=== PATIENT | female | born 1980 | race American Indian/Alaskan Native ===

== ENCOUNTER 2017-08-13 08:05 | Day surgery (SDC) | payer BC, OTHER ==
[~2017-08-13 08:05] MED LIST: Bupivacaine 0.5% 30 ML SDV ONE; Clindamycin Phosphate in D5W 300 MG in Premix Bag 1 BAG IV SCH; Lactated Ringers 1,000 ML IV SCH; Lidocaine 2% 5 ML SDV ONE; Midazolam 1 MG/ML 2 ML SDV ONE; Propofol 200 MG/20 ML SDV ONE; Sodium Chloride 0.9% 10 ML Syringe FLUSH PRN; Sodium Chloride 0.9% 2.5 ML Syringe FLUSH PRN; fentaNYL 100 MCG/2 ML SDV ONE
--- NOTE | 2017-08-13 08:44 | PCM.PREANE ---
Preanesthetic Assessment - Anesthesia/Transfusion/Family Hx Anesthesia History: Prior Anesthesia Without Reaction Family History of Anesthesia Reaction: No Family History of Anesthesia Reaction, Other: Father had prolonged hypotension during and after total knee Transfusion History: No Prior Transfusion(s) Intubation History: Unknown Additional History: Required transport to other facility a few years ago fro treatment of renal failure due to severe kidney infection - Review of Systems General: No Symptoms, Other (Reports recent hesd cold with mild cough and sniffles) Pulmonary: No Symptoms, Cough, Other (Mild cough related to recent cold) Cardiovascular: No Symptoms Gastrointestinal: Other (Chronic heartburn GERD Reflux) Neurological: Other (Anxiety took an atavan this morning) Other: Reports: Liver Problems, Depression, Anxiety - Physical Assessment NPO Status Date: 08/12/17 (Med with sip this am) NPO Status Time: 18:00 Height: 1.68 m Weight: 92.533 kg ASA Class: 2 Airway Class: Mallampati = 2 Dentition: Reports: Normal Dentition, [place](s) Thyro-Mental Finger Breadths: 3 Mouth Opening Finger Breadths: 2 ROM/Head Extension: Full (front veneers crowns elsewhere) - Lab Values: pending potassium - Allergies Allergies/Adverse Reactions: Allergies Allergy/AdvReac Type Severity Reaction Status Date / Time Penicillins Allergy Rash Verified 08/10/17 10:08 - Acknowledgements Anesthesia Type Planned: General Anesthesia Pt an Appropriate Candidate for the Planned Anesthesia: Yes Alternatives and Risks of Anesthesia Discussed w Pt/Guardian: Yes Pt/Guardian Understands and Agrees with Anesthesia Plan: Yes PreAnesthesia Questionnaire HEENT History: Reports: Other (See Below) Other HEENT History: wears glasses Cardiovascular History: Reports: Hypertension Gastrointestinal History: Reports: GERD, Other (See Below) Other Gastrointestinal History: "fatty liver" Genitourinary History: Reports: Other (See Below) Other Genitourinary History: "had strep in my kidneys and went in to acute renal failure in 2012 and was flown to [place]" Neurological History: Reports: Other (See Below) Other Neuro History: restless legs Psychiatric History: Reports: Anxiety, Depression Endocrine/Metabolic History: Reports: Obesity/BMI 30+ - Past Surgical History Head Surgeries/Procedures: Reports: None GI Surgical History: Reports: Cholecystectomy Female Surgical History: Reports: Tubal Ligation - SUBSTANCE USE Smoking Status *Q: Current Every Day Smoker Tobacco Use Within Last Twelve Months: Cigarettes Recreational Drug Use History: No - HOME MEDS Home Medications: Home Meds Atenolol 25 mg PO BEDTIME 08/10/17 [History] LORazepam 1 tab PO ASDIRECTED PRN 08/10/17 [History] Metoclopramide HCl 10 mg PO DAILY 08/10/17 [History] Omeprazole 40 mg PO DAILY 08/10/17 [History] Pramipexole Di-HCl [Pramipexole Dihydrochloride] 2 tab PO BEDTIME 08/10/17 [ History] Sertraline HCl 100 mg PO BEDTIME 08/10/17 [History] amLODIPine [Norvasc] 5 mg PO BEDTIME 08/10/17 [History] - CURRENT (IN HOUSE) MEDS Current Meds: Current Medications Clindamycin Phosphate 300 mg/ (Premix) 50 mls @ 100 mls/hr IV ONETIME LILIA Lactated Ringer's (Ringers, Lactated) 1,000 mls @ 125 mls/hr IV ASDIRECTED LILIA Sodium Chloride (Saline Flush) 10 ml FLUSH ASDIRECTED PRN PRN Reason: Keep Vein Open Sodium Chloride (Saline Flush) 2.5 ml FLUSH ASDIRECTED PRN PRN Reason: Keep Vein Open Discontinued Medications Bupivacaine HCl (Marcaine 0.5%) Confirm Administered Dose 30 ml .ROUTE .STK-MED ONE Stop: 08/13/17 07:21 Fentanyl (Sublimaze) Confirm Administered Dose 100 mcg .ROUTE .STK-MED ONE Stop: 08/13/17 07:24 Fentanyl (Sublimaze) Confirm Administered Dose 100 mcg .ROUTE .STK-MED ONE Stop: 08/13/17 07:25 Lidocaine (Xylocaine-Mpf 2%) Confirm Administered Dose 10 ml .ROUTE .STK-MED ONE Stop: 08/13/17 07:23 Midazolam HCl (Versed 1 Mg/Ml) Confirm Administered Dose 2 mg .ROUTE .STK-MED ONE Stop: 08/13/17 07:24 Propofol (Diprivan 20 Ml) Confirm Administered Dose 400 mg .ROUTE .STK-MED ONE Stop: 08/13/17 07:24
[2017-08-13 09:12] LABS: CHLORIDE,CL 107 mmol/L (98-110); SODIUM,NA 138 mmol/L (136-146)
[2017-08-13] MEDS ORDERED: Lidocaine 2% 5 ML SDV ONE (09:22)
[2017-08-13] MEDS ORDERED: Succinylcholine/Normal Saline 200 MG/10 ML Syringe ONE (10:13)
[2017-08-13] MEDS ORDERED: ePHEDrine 50 MG/ML SDV ONE (10:18)
[2017-08-13] MEDS ORDERED: fentaNYL 100 MCG/2 ML SDV IVPUSH PRN (11:00)
--- NOTE | 2017-08-13 11:27 | PCM.POSTAN ---
POST ANESTHESIA ASSESSMENT - MENTAL STATUS Mental Status: Alert, Oriented - VITAL SIGNS Pulse Rate: 79 SaO2: 91 (91 on room air to phase 2 with supplemental nasal o2) Resp Rate: 11 Blood Pressure: 95/48 - RESPIRATORY Respiratory Status: Respiratory Rate WNL, Airway Patent, O2 Saturation Stable, Supplemental Oxygen Free Text/Narrative:: Had atavan prior to coming for surgery this AM drifts off to sleep unless conversing also spontaneous awake then back to sleep. Will supplement with nasal o2 bringing Sao2 to 94 for phase 2. - CARDIOVASCULAR CV Status: Pulse Rate WNL, Blood Pressure Stable - GASTROINTESTINAL GI Status: No Symptoms - PAIN Pain Score: 0 - POST OP HYDRATION Hydration Status: Adequate & Stable
--- NOTE | 2017-08-13 12:29 | PCM48HPAN ---
Post Anesthesia Note - EVALUATION WITHIN 48HRS OF ANESTHETIC Vital Signs in Normal Range: Yes Patient Participated in Evaluation: Yes Respiratory Function Stable: Yes Airway Patent: Yes Cardiovascular Function Stable: Yes Hydration Status Stable: Yes Pain Control Satisfactory: Yes Nausea and Vomiting Control Satisfactory: Yes Mental Status Recovered: Yes
--- NOTE | 2017-08-14 12:46 | OR ---
SURGEON: JERI BYRD MD DATE OF PROCEDURE: 08/13/2017 PREOPERATIVE DIAGNOSES: 1. Heartburn. 2. Hidradenitis of the left breast. POSTOPERATIVE DIAGNOSES: 1. Heartburn. 2. Hidradenitis of the left breast. PROCEDURES PERFORMED: 1. Excision of left breast fold hidradenitis. 2. Esophagogastroduodenoscopy with biopsy. ANESTHESIA: General endotracheal anesthesia. ESTIMATED BLOOD LOSS: 5 mL. FLUIDS: See anesthesia record. FINDINGS: Normal EGD, 4 cm area of chronically inflamed hidradenitis suppurativa. COMPLICATIONS: None. INDICATION: The patient is a 36-year-old female who presented to my office with complaints of refractory heartburn. She has been on omeprazole for a long period of time with no relief in her symptoms. She never had an EGD. On physical exam, I discovered that she had an area of chronically inflamed tissue suggestive of hidradenitis suppurativa under her left breast fold. She has been on multiple rounds of antibiotics with no improvement. I explained to the patient the pathophysiology of hidradenitis and that the treatment for that is excision. We decided to perform an excision of this area as well as a diagnostic EGD. I explained the procedures in detail and the expected perioperative course. I have discussed the risks including bleeding, infection, or damage to surrounding structures including perforation with the EGD. The patient verbalized understanding and wishes to proceed. PROCEDURE IN DETAIL: The patient was brought into the OR and placed on the OR table in supine position. A time-out was completed verifying the patient's name, age, date of , allergies, and procedures to be performed. General endotracheal anesthetic was induced. The left chest and breasts were prepped and draped in the usual standard fashion. An elliptical incision was made along the inferior breast folds approximately 4 x 2 cm in size. This completely encompassed the area of chronically inflamed tissue, leaving healthy wound edges. The area was anesthetized with 0.5% Marcaine plain. Cautery was used to dissect down to the subcutaneous fat. The elliptical skin incision was then undermined using the cautery. The piece of tissue was then removed and sent to pathology labeled as left breast hidradenitis. Hemostasis was achieved using electrocautery. The wound was then closed with interrupted 3-0 Vicryl sutures on the subcutaneous fat and a running 4-0 Monocryl stitch in the subcuticular space. Steri-Strips and sterile dressings were applied. Attention was then turned to the patient's oropharynx. A bite block was placed in the patient's mouth. A well-lubricated endoscope was then placed into the back of the throat and navigated under direct visualization to the level of the second portion of the duodenum. This appeared normal, and a photograph was taken. The scope was then fully withdrawn while examining the color, texture, anatomy, and integrity of the upper GI tract. The patient had what appeared to be some scattered small hyperplastic polyps measuring about 1 to 2 mm in the duodenal bulb. A biopsy was taken of this polyp in the duodenum. The scope was then brought into the stomach and a photograph taken of the pylorus and GE junction. This appeared normal, and a photograph was taken. Biopsies were then taken in the gastric antrum, body, and fundus and sent for H pylori and histologic testing. Overall, there did not appear to be any gross inflammation or ulceration. The scope was withdrawn to the distal esophagus and a photograph was taken of the GE junction which appeared normal. The remainder of the esophageal mucosa was without any pathology. The scope was removed from the patient and the procedure was terminated. The patient tolerated the procedure well and was taken to the PACU in stable condition. ENDOSCOPIC DIAGNOSIS: Normal esophagogastroduodenoscopy. RECOMMENDATIONS: Follow up in clinic in 2 weeks. I gave the patient detailed instructions on how to care for her left breast wound. I will switch the patient's pantoprazole today to see if this improves her heartburn symptoms. 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 SHAHEED CHOPRA /[id number]
== END 2017-08-13 12:30 | disposition home or self-care (01) ==
LOC: MW.SDS 08:05
PROVIDERS: ATTEND Surgery
DX: K21.9 Gastro-esophageal reflux disease without esophagitis (principal); L73.2 Hidradenitis suppurativa; F41.9 Anxiety disorder, unspecified; M54.9 Dorsalgia, unspecified; F32.9 Major depressive disorder, single episode, unspecified; R79.89 Other specified abnormal findings of blood chemistry; R31.9 Hematuria, unspecified; I10 Essential (primary) hypertension; K29.50 Unspecified chronic gastritis without bleeding; E87.6 Hypokalemia; G47.00 Insomnia, unspecified; G25.81 Restless legs syndrome; E66.9 Obesity, unspecified; F17.210 Nicotine dependence, cigarettes, uncomplicated; Z88.0 Allergy status to penicillin; Z79.899 Other long term (current) drug therapy; Z90.49 Acquired absence of other specified parts of digestive tract; Z98.51 Tubal ligation status; Z68.32 Body mass index [BMI] 32.0-32.9, adult
CPT/HCPCS: 11450; 36415; 43239; 80048; 81025; J2250; J3010; J7120; 00740; 88305; 88312; J2704

== ENCOUNTER 2018-01-20 06:43 | Day surgery (SDC) | payer BC, OTHER ==
[2018-01-19 12:04] LABS: CHLORIDE,CL 104 mmol/L (98-107); SODIUM,NA 140 mmol/L (136-145)
[~2018-01-20 06:43] MED LIST changes: -Bupivacaine 0.5% 30 ML SDV ONE; -Clindamycin Phosphate in D5W 300 MG in Premix Bag 1 BAG IV SCH; -Lactated Ringers 1,000 ML IV SCH; -Lidocaine 2% 5 ML SDV ONE; -Midazolam 1 MG/ML 2 ML SDV ONE; -Propofol 200 MG/20 ML SDV ONE; +ceFAZolin 1 GM in Premix Bag 1 BAG IV ONE; -fentaNYL 100 MCG/2 ML SDV ONE
[2018-01-20] MEDS: Lactated Ringers 1,000 ML IV SCH ×2 (07:02→11:49)
[2018-01-20] MEDS ORDERED: fentaNYL 100 MCG/2 ML SDV IVPUSH PRN (07:11)
[2018-01-20] MEDS ORDERED: Scopolamine 1.5 MG Transdermal Patch TRDERM PRN (07:11)
[2018-01-20] MEDS ORDERED: Acetaminophen 1,000 MG in Premix Bag 1 BAG IV SCH (07:15)
--- NOTE | 2018-01-20 07:20 | PCM.PREANE ---
Preanesthetic Assessment - Anesthesia/Transfusion/Family Hx Anesthesia History: Prior Anesthesia Without Reaction Other Type of Anesthesia Reaction Comment: "oxygen saturation drops during recovery" Family History of Anesthesia Reaction: No Family History of Anesthesia Reaction, Other: Father had prolonged hypotension during and after total knee Transfusion History: No Prior Transfusion(s) Intubation History: Unknown - Review of Systems General: No Symptoms Pulmonary: No Symptoms Cardiovascular: No Symptoms Gastrointestinal: No Symptoms Neurological: No Symptoms Other: Reports: None - Physical Assessment NPO Status Date: 01/19/18 O2 Sat by Pulse Oximetry: 95 Respiratory Rate: 16 Vital Signs: Last Vital Signs Temp 36.5 C 01/20/18 06:58 Pulse 62 01/20/18 06:58 Resp 16 01/20/18 06:58 BP 132/87 01/20/18 06:58 Pulse Ox 95 01/20/18 06:58 Height: 1.68 m Weight: 94.801 kg ASA Class: 2 Mental Status: Alert & Oriented x3 Airway Class: Mallampati = 1 Dentition: Reports: Normal Dentition, [place](s) (central maxillary crowns) ROM/Head Extension: Full Lungs: Clear to Auscultation, Normal Respiratory Effort Cardiovascular: Regular Rate, Regular Rhythm - Lab Values: Laboratory Last Values WBC 6.40 K/uL (4.0-11.0) 01/19/18 11:12 RBC 4.43 M/uL (4.30-5.90) 01/19/18 11:12 Hgb 13.9 g/dL (12.0-16.0) 01/19/18 11:12 Hct 40.2 % (36.0-46.0) 01/19/18 11:12 MCV 90.7 fL (80.0-98.0) 01/19/18 11:12 MCH 31.4 pg (27.0-32.0) 01/19/18 11:12 MCHC 34.6 g/dL (31.0-37.0) 01/19/18 11:12 RDW Std Deviation 46.9 fl (28.0-62.0) 01/19/18 11:12 RDW Coeff of Corey 14 % (11.0-15.0) 01/19/18 11:12 Plt Count 218 K/uL (150-400) 01/19/18 11:12 MPV 9.00 fL (7.40-12.00) 01/19/18 11:12 Nucleated RBC % 0.0 /100WBC 01/19/18 11:12 Nucleated RBCs # 0 K/uL 01/19/18 11:12 Sodium 140 mmol/L (136-145) 01/19/18 11:12 Potassium 3.1 mmol/L (3.5-5.1) L 01/19/18 11:12 Chloride 104 mmol/L (98-107) 01/19/18 11:12 Carbon Dioxide 25.0 mmol/L (21.0-32.0) 01/19/18 11:12 BUN 11 mg/dL (7.0-18.0) 01/19/18 11:12 Creatinine 0.8 mg/dL (0.6-1.0) 01/19/18 11:12 Est Cr Clr Drug Dosing 90.13 mL/min 01/19/18 11:12 Estimated GFR (MDRD) > 60.0 ml/min 01/19/18 11:12 Glucose 101 mg/dL (74-106) 01/19/18 11:12 Calcium 8.7 mg/dL (8.5-10.1) 01/19/18 11:12 HCG, Qual NEGATIVE (NEG) 01/19/18 11:12 Blood Type A POSITIVE 01/19/18 11:12 Antibody Screen NEGATIVE 01/19/18 11:12 - Allergies Allergies/Adverse Reactions: Allergies Allergy/AdvReac Type Severity Reaction Status Date / Time morphine Allergy Itching Verified 01/20/18 07:03 Penicillins Allergy Rash Verified 01/20/18 07:03 - Anesthesia Plan Pre-Op Medication Ordered: Other (iv tylenol plus scop patch) - Acknowledgements Anesthesia Type Planned: General Anesthesia Pt an Appropriate Candidate for the Planned Anesthesia: Yes Alternatives and Risks of Anesthesia Discussed w Pt/Guardian: Yes Pt/Guardian Understands and Agrees with Anesthesia Plan: Yes Additional Comments: PMH: gerd. 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: Neurological History: Reports: Other (See Below) Other Neuro History: restless legs Psychiatric History: Reports: Anxiety, Depression Other Psychiatric History: loss of son 1 yr ago Endocrine/Metabolic History: Reports: Obesity/BMI 30+ - Past Surgical History Head Surgeries/Procedures: Reports: None GI Surgical History: Reports: Cholecystectomy Female Surgical History: Reports: Tubal Ligation Dermatological Surgical History: Reports: Other (See Below) - SUBSTANCE USE Smoking Status *Q: Current Every Day Smoker Tobacco Use Within Last Twelve Months: Cigarettes Recreational Drug Use History: No - HOME MEDS Home Medications: Home Meds Atenolol 25 mg PO BEDTIME 08/10/17 [History] Pramipexole Di-HCl [Pramipexole Dihydrochloride] 2 tab PO BEDTIME PRN 08/10/17 [ History] Sertraline HCl 100 mg PO BEDTIME 08/10/17 [History] amLODIPine [Norvasc] 5 mg PO BEDTIME 08/10/17 [History] Pantoprazole [ProTONIX] 40 mg PO ACBREAKFAST #30 tab.cr 08/13/17 [Rx] - CURRENT (IN HOUSE) MEDS Current Meds: Current Medications Fentanyl (Sublimaze) 50 mcg IVPUSH .Q5MIN PRN PRN Reason: Pain Lactated Ringer's (Ringers, Lactated) 1,000 mls @ 125 mls/hr IV ASDIRECTED LILIA Last Admin: 01/20/18 07:02 Dose: 125 mls/hr Acetaminophen 1,000 mg/ Premix 100 mls @ 400 mls/hr IV .ONETIME LILIA Scopolamine (Transderm-Scop) 1.5 mg TRDERM .ONCE PRN PRN Reason: Post Op Nausea Sodium Chloride (Saline Flush) 10 ml FLUSH ASDIRECTED PRN PRN Reason: Keep Vein Open Sodium Chloride (Saline Flush) 2.5 ml FLUSH ASDIRECTED PRN PRN Reason: Keep Vein Open Discontinued Medications Cefazolin Sodium/Dextrose 1 gm (/ Premix) 50 mls @ 100 mls/hr IV ONETIME ONE Stop: 01/19/18 10:31
[2018-01-20] MEDS ORDERED: fentaNYL 250 MCG/5 ML SDV ONE (07:24)
[2018-01-20] MEDS ORDERED: Rocuronium 10 MG/ML 10 ML Syringe ONE (07:24)
[2018-01-20] MEDS ORDERED: Propofol 200 MG/20 ML SDV ONE ×2 (07:24→09:51)
[2018-01-20] MEDS ORDERED: Ondansetron 4 MG/2 ML SDV ONE (07:24)
[2018-01-20] MEDS ORDERED: Midazolam 1 MG/ML 2 ML SDV ONE (07:24)
[2018-01-20] MEDS ORDERED: Lidocaine 2% 5 ML SDV ONE (07:24)
[2018-01-20] MEDS ORDERED: ceFAZolin/Dextrose,Iso-Osmotic 2 GM/50 ML Duplex Bag IV ONE (07:26)
[2018-01-20] MEDS ORDERED: Octyl 2-Cyanoacrylate 1 Tube ONE (07:39)
[2018-01-20] MEDS ORDERED: Fluorescein 5 ML Vial ONE (07:40)
[2018-01-20] MEDS ORDERED: HYDROmorphone 2 MG/ML SDV ONE (08:12)
[2018-01-20] MEDS ORDERED: Dexamethasone 4 MG/ML 5 ML MDV ONE (08:19)
[2018-01-20] MEDS ORDERED: diphenhydrAMINE 50 MG/ML SDV ONE (08:19)
[2018-01-20] MEDS ORDERED: Ketorolac 30 MG/ML SDV ONE (09:04)
[2018-01-20] MEDS ORDERED: Furosemide 40 MG/4 ML VIAL ONE (09:11)
[2018-01-20] MEDS ORDERED: Acetaminophen/oxyCODONE 325-5 MG Tab PO PRN (09:17)
[2018-01-20] MEDS ORDERED: Promethazine 25 MG/ML SDV IM PRN (09:17)
[2018-01-20] MEDS ORDERED: Ondansetron 4 MG/2 ML SDV IVPUSH PRN (09:17)
[2018-01-20] MEDS ORDERED: Ketorolac 30 MG/ML SDV IVPUSH ONE (09:17)
[2018-01-20] MEDS ORDERED: Morphine 4 MG/ML Syringe IVPUSH PRN (09:17)
[2018-01-20] MEDS ORDERED: Ketorolac 30 MG/ML SDV IVPUSH PRN (09:17)
[2018-01-20] MEDS ORDERED: Glycopyrrolate 0.2 MG/ML SDV ONE (09:18)
[2018-01-20] MEDS ORDERED: Neostigmine Methylsulfate 1 MG/ML 5 ML Syringe ONE (09:18)
--- NOTE | 2018-01-20 09:22 | PCM.OPNOTE ---
- General Post-Op/Procedure Note Date of Surgery/Procedure: 01/20/18 Operative Procedure(s): TLH, Bilat. salpengectomy, and cystoscopy Pre Op Diagnosis: bleeding Post-Op Diagnosis: Same Anesthesia Technique: General ET Tube Primary Surgeon: Kevin Charles Chief Crna: Hedy Buchanan EBL in mLs: 75 Complications: None Condition: Good
--- NOTE | 2018-01-20 10:45 | PCM.POSTAN ---
POST ANESTHESIA ASSESSMENT - MENTAL STATUS Mental Status: Alert, Oriented - RESPIRATORY Respiratory Status: Respiratory Rate WNL, Airway Patent, O2 Saturation Stable - CARDIOVASCULAR CV Status: Pulse Rate WNL, Blood Pressure Stable - GASTROINTESTINAL GI Status: No Symptoms - POST OP HYDRATION Hydration Status: Adequate & Stable (prolongued direct attendance in PACU untill 1043. Sats now 94% on mask O2, RR 11-13. Will write for nasal O2 on floor and continuous pulseoximetry. Comfortable. no need for additional analgesics in pacu. )
--- NOTE | 2018-01-20 11:14 | PCM.SN ---
- Free Text/Narrative Note: fully awake and alert. Spo2= 94% on NC. pain free. To floor.
--- NOTE | 2018-01-20 12:37 | OR ---
SURGEON: Kevin Charles MD DATE OF PROCEDURE: 01/20/2018 PREOPERATIVE DIAGNOSIS: Menometrorrhagia. POSTOPERATIVE DIAGNOSIS: Menometrorrhagia. OPERATIONS PERFORMED: Total laparoscopic hysterectomy, laparoscopic bilateral salpingectomy preserving both ovaries, and cystoscopy. LEAD ARCHITECT: MARCELLE Carney ANESTHESIA: General endotracheal intubation, Magali Love and Dr. Wilson. ESTIMATED BLOOD LOSS: 75 mL. COMPLICATIONS: None. FINDINGS: Uterus about 10-week size. Both ovaries are essentially normal. INDICATION FOR SURGERY: [place] referred to the admit note. PROCEDURE IN DETAIL: The patient was brought to the OR, properly identified and after adequate level of anesthesia, patient placed in the lithotomy position with access to the abdomen and the vagina. Burks catheter was placed in the bladder. Then John Paul surgical colpotomizer manipulator placed in the uterus for manipulation and then the operation shifted abdominally. Stab wound done beneath the umbilicus. The Veress needle was placed in the peritoneal cavity, and that cavity was insufflated with 3.5 L carbon dioxide. The abdomen entered with 5 mm trocar and scope, utilizing the Visiport technique. Once we got entry, the 10-12 trocar placed in the left iliac fossa and 5 mm trocar in the right iliac fossa. After placing the patient in steep Trendelenburg, inspection of the pelvic organs revealed the above-mentioned dictated finding. The procedure was ended by using the Gabino Harmonic scalpel. The superior pedicle coagulated and transected. The tubes including with the specimen and ovary on both sides replaced. Then, the round ligament is coagulated, transected and then the anterior leaf of the broad ligament dissected downward medially, pushing the bladder completely away from the operative field. Then, the uterine vessel was coagulated and transected at the level of the internal ring of the manipulator. Once that done, using the Gabino Harmonic scalpel, a circular incision in the vaginal mucosa around the tip of the manipulator, detaching the cervix from its attachment to the vagina, uterus delivered vaginally, and pneumoperitoneum re-established by placing vaginal pack in the vagina, and the vagina was closed laparoscopically with 2-0 PDS interrupted sutures. Once we did that and while we were doing that, we asked the Anesthesia people to give the patient 3 mL of fluorescein. After deflating the abdomen and after making sure there was no bleeding, no oozing from all the pedicles, the Burks catheter was removed. Cystoscopy was performed. The bladder was intact. Both ureteric orifices were seen with the dye coming from both of them. Thus, the patency of both ureters verified. Satisfied with these findings, the procedure ended. The instrument and hardware retrieved from the abdomen and the vagina. Multiple laparoscopic incisions closed in layers. The instrument and sponge count correct. The patient tolerated the procedure well, went to recovery room in stable general condition. HJOANA / NAV /[id number]
[2018-01-20] MEDS: Acetaminophen/oxyCODONE 325-5 MG Tab PO PRN ×2 (16:54→20:56)
[2018-01-21] MEDS: Acetaminophen/oxyCODONE 325-5 MG Tab PO PRN ×2 (02:22→08:41)
[2018-01-21 06:32] LABS: CHLORIDE,CL 105 mmol/L (98-107); SODIUM,NA 140 mmol/L (136-145)
--- NOTE | 2018-01-21 08:53 | PCM48HPAN ---
Post Anesthesia Note - EVALUATION WITHIN 48HRS OF ANESTHETIC Vital Signs in Normal Range: Yes Patient Participated in Evaluation: Yes Respiratory Function Stable: Yes Airway Patent: Yes Cardiovascular Function Stable: Yes Hydration Status Stable: Yes Pain Control Satisfactory: Yes Nausea and Vomiting Control Satisfactory: Yes Mental Status Recovered: Yes Resp Rate: 18
--- NOTE | 2018-01-21 10:29 | PCM.SURGPN ---
- General Info Date of Service: 01/21/18 POD#: 1 Functional Status: Reports: Pain Controlled - Review of Systems General: Reports: No Symptoms HEENT: Reports: No Symptoms Pulmonary: Reports: No Symptoms Cardiovascular: Reports: No Symptoms Gastrointestinal: Reports: No Symptoms Genitourinary: Reports: No Symptoms Musculoskeletal: Reports: No Symptoms Skin: Reports: No Symptoms Neurological: Reports: No Symptoms Psychiatric: Reports: No Symptoms - Patient Data Vitals - Most Recent: Last Vital Signs Temp 36.7 C 01/21/18 08:00 Pulse 66 01/21/18 08:00 Resp 18 01/21/18 08:52 BP 113/64 01/21/18 08:00 Pulse Ox 91 L 01/21/18 09:17 Weight - Most Recent: 94.801 kg I&O - Last 24 Hours: Intake & Output 01/20/18 01/21/18 01/21/18 22:59 06:59 14:59 Intake Total 2060 1500 Output Total 300 1450 Balance 1760 50 Lab Results Last 24 Hrs: Laboratory Results - last 24 hr 01/21/18 01/21/18 Range/Units 04:57 04:57 WBC 10.77 (4.0-11.0) K/uL RBC 3.97 L (4.30-5.90) M/uL Hgb 12.1 (12.0-16.0) g/dL Hct 36.7 (36.0-46.0) % MCV 92.4 (80.0-98.0) fL MCH 30.5 (27.0-32.0) pg MCHC 33.0 (31.0-37.0) g/dL RDW Std Deviation 47.4 (28.0-62.0) fl RDW Coeff of Corey 14 (11.0-15.0) % Plt Count 190 (150-400) K/uL MPV 9.80 (7.40-12.00) fL Neut % (Auto) 72.0 (48.0-80.0) % Lymph % (Auto) 19.3 (16.0-40.0) % [place] % (Auto) 8.0 (0.0-15.0) % Eos % (Auto) 0.5 (0.0-7.0) % Baso % (Auto) 0.2 (0.0-1.5) % Neut # (Auto) 7.8 H (1.4-5.7) K/uL Lymph # (Auto) 2.1 (0.6-2.4) K/uL [place] # (Auto) 0.9 H (0.0-0.8) K/uL Eos # (Auto) 0.1 (0.0-0.7) K/uL Baso # (Auto) 0.0 (0.0-0.1) K/uL Nucleated RBC % 0.0 /100WBC Nucleated RBCs # 0 K/uL Sodium 140 (136-145) mmol/L Potassium 3.1 L (3.5-5.1) mmol/L Chloride 105 (98-107) mmol/L Carbon Dioxide 26.9 (21.0-32.0) mmol/L BUN 11 (7.0-18.0) mg/dL Creatinine 0.8 (0.6-1.0) mg/dL Est Cr Clr Drug Dosing 90.13 mL/min Estimated GFR (MDRD) > 60.0 ml/min Glucose 135 H (74-106) mg/dL Calcium 8.2 L (8.5-10.1) mg/dL Med Orders - Current: Current Medications Fentanyl (Sublimaze) 50 mcg IVPUSH .Q5MIN PRN PRN Reason: Pain Lactated Ringer's (Ringers, Lactated) 1,000 mls @ 125 mls/hr IV ASDIRECTED [facility] Last Infusion: 01/20/18 20:50 Dose: Infused Acetaminophen 1,000 mg/ Premix 100 mls @ 400 mls/hr IV .ONETIME [facility] Last Admin: 01/20/18 07:24 Dose: 400 mls/hr Ketorolac Tromethamine (Toradol) 30 mg IVPUSH Q6H PRN PRN Reason: Pain (severe 7-10) Stop: 01/25/18 09:17 Morphine Sulfate (Morphine) 4 mg IVPUSH Q2H PRN PRN Reason: Pain (severe 7-10) Ondansetron HCl (Zofran) 4 mg IVPUSH Q6H PRN PRN Reason: Nausea/Vomiting Oxycodone/Acetaminophen (Percocet 325-5 Mg) 1 tab PO Q4H PRN PRN Reason: Pain (moderate 4-6) Oxycodone/Acetaminophen (Percocet 325-5 Mg) 2 tab PO Q4H PRN PRN Reason: Pain (moderate 4-6) Last Admin: 01/21/18 08:41 Dose: 2 tab Promethazine HCl (Phenergan) 25 mg IM Q6H PRN PRN Reason: Nausea/Vomiting Scopolamine (Transderm-Scop) 1.5 mg TRDERM .ONCE PRN PRN Reason: Post Op Nausea Last Admin: 01/20/18 07:24 Dose: 1.5 mg Sodium Chloride (Saline Flush) 10 ml FLUSH ASDIRECTED PRN PRN Reason: Keep Vein Open Sodium Chloride (Saline Flush) 2.5 ml FLUSH ASDIRECTED PRN PRN Reason: Keep Vein Open Discontinued Medications Cefazolin Sodium/Dextrose (Ancef) Confirm Administered Dose 2 gm IV .STK-MED ONE Stop: 01/20/18 07:27 Dexamethasone (Dexamethasone) Confirm Administered Dose 20 mg .ROUTE .STK-MED ONE Stop: 01/20/18 08:20 Diphenhydramine HCl (Benadryl) Confirm Administered Dose 50 mg .ROUTE .STK-MED ONE Stop: 01/20/18 08:20 Fentanyl (Sublimaze) Confirm Administered Dose 250 mcg .ROUTE .STK-MED ONE Stop: 01/20/18 07:25 Fluorescein Sodium (Ak-Fluor) Confirm Administered Dose 5 ml .ROUTE .STK-MED ONE Stop: 01/20/18 07:41 Furosemide (Lasix) Confirm Administered Dose 40 mg .ROUTE .STK-MED ONE Stop: 01/20/18 09:12 Glycopyrrolate (Robinul) Confirm Administered Dose 0.4 mg .ROUTE .STK-MED ONE Stop: 01/20/18 09:19 Hydromorphone HCl (Dilaudid) Confirm Administered Dose 2 mg .ROUTE .STK-MED ONE Stop: 01/20/18 08:13 Cefazolin Sodium/Dextrose 1 gm (/ Premix) 50 mls @ 100 mls/hr IV ONETIME ONE Stop: 01/19/18 10:31 Last Admin: 01/20/18 11:54 Dose: Not Given Ketorolac Tromethamine (Toradol) Confirm Administered Dose 30 mg .ROUTE .STK- MED ONE Stop: 06/07/18 09:05 Ketorolac Tromethamine (Toradol) 30 mg IVPUSH ONETIME ONE Stop: 01/20/18 09:18 Last Admin: 01/20/18 12:00 Dose: Not Given Lidocaine (Xylocaine-Mpf 2%) Confirm Administered Dose 5 ml .ROUTE .STK-MED ONE Stop: 01/20/18 07:25 Midazolam HCl (Versed 1 Mg/Ml) Confirm Administered Dose 2 mg .ROUTE .STK-MED ONE Stop: 01/20/18 07:25 Neostigmine Methylsulfate (Neostigmine) Confirm Administered Dose 5 mg .ROUTE .STK-MED ONE Stop: 01/20/18 09:19 Octyl Cyanoacrylate (Dermabond Advance) Confirm Administered Dose 1 applic .ROUTE .STK-MED ONE Stop: 01/20/18 07:40 Ondansetron HCl (Zofran) Confirm Administered Dose 4 mg .ROUTE .STK-MED ONE Stop: 01/20/18 07:25 Propofol (Diprivan 20 Ml) Confirm Administered Dose 200 mg .ROUTE .STK-MED ONE Stop: 01/20/18 07:25 Propofol (Diprivan 20 Ml) Confirm Administered Dose 200 mg .ROUTE .STK-MED ONE Stop: 01/20/18 09:52 Rocuronium [place] (Zemuron) Confirm Administered Dose 100 mg .ROUTE .STK-MED ONE Stop: 01/20/18 07:25 - Exam Wound/Incisions: Healing Well General: Alert, Oriented HEENT: Pupils Equal Neck: Supple Lungs: Clear to Auscultation, Normal Respiratory Effort Cardiovascular: Regular Rate, Regular Rhythm GI/Abdominal Exam: Normal Bowel Sounds, Soft, Non-Tender, No Organomegaly, No Distention, No Abnormal Bruit, No Mass, Pelvis Stable Extremities: Normal Inspection, Normal Range of Motion, Non-Tender, No Pedal Edema, Normal Capillary Refill Skin: Warm, Dry, Intact Neurological: No New Focal Deficit Psy/Mental Status: Alert, Normal Affect, Normal Mood - Problem List Review Problem List Initiated/Reviewed/Updated: Yes - My Orders Last 24 Hours: Active Orders 24 hr Category Date Time Status Overnight Pulse Oximetry [RC] Click to Edit Care 01/20/18 10:40 Inactive Regular Diet [DIET] Diet 01/20/18 Lunch Active Medication Orders Fentanyl (Sublimaze) 50 mcg IVPUSH .Q5MIN PRN PRN Reason: Pain Lactated Ringer's (Ringers, Lactated) 1,000 mls @ 125 mls/hr IV ASDIRECTED [facility] Last Infusion: 01/20/18 20:50 Dose: 125 mls/hr Admin: 01/20/18 11:49 Dose: 125 mls/hr Infusion: 01/20/18 11:49 Dose: 125 mls/hr Admin: 01/20/18 07:02 Dose: 125 mls/hr Acetaminophen 1,000 mg/ Premix 100 mls @ 400 mls/hr IV .ONETIME [facility] Last Admin: 01/20/18 07:24 Dose: 400 mls/hr Ketorolac Tromethamine (Toradol) 30 mg IVPUSH Q6H PRN PRN Reason: Pain (severe 7-10) Stop: 01/25/18 09:17 Morphine Sulfate (Morphine) 4 mg IVPUSH Q2H PRN PRN Reason: Pain (severe 7-10) Ondansetron HCl (Zofran) 4 mg IVPUSH Q6H PRN PRN Reason: Nausea/Vomiting Oxycodone/Acetaminophen (Percocet 325-5 Mg) 1 tab PO Q4H PRN PRN Reason: Pain (moderate 4-6) Oxycodone/Acetaminophen (Percocet 325-5 Mg) 2 tab PO Q4H PRN PRN Reason: Pain (moderate 4-6) Last Admin: 01/21/18 08:41 Dose: 2 tab Admin: 01/21/18 02:22 Dose: 2 tab Admin: 01/20/18 20:56 Dose: 2 tab Admin: 01/20/18 16:54 Dose: 2 tab Promethazine HCl (Phenergan) 25 mg IM Q6H PRN PRN Reason: Nausea/Vomiting Scopolamine (Transderm-Scop) 1.5 mg TRDERM .ONCE PRN PRN Reason: Post Op Nausea Last Admin: 01/20/18 07:24 Dose: 1.5 mg Sodium Chloride (Saline Flush) 10 ml FLUSH ASDIRECTED PRN PRN Reason: Keep Vein Open Sodium Chloride (Saline Flush) 2.5 ml FLUSH ASDIRECTED PRN PRN Reason: Keep Vein Open - Assessment Assessment (Free Text/Narrative):: Status post total laparoscopic hysterectomy postoperative day #1 the patient is doing well the postvasectomy instruction is given and she will be sent home today
== END 2018-01-21 10:40 | disposition home or self-care (01) ==
LOC: MW.SDS 06:43 → MW.MS 09:17 → MW.SDS 01-21 10:40
PROVIDERS: ATTEND Obstetrics & Gynecology
DX: N92.1 Excessive and frequent menstruation with irregular cycle (principal); F41.9 Anxiety disorder, unspecified; K21.9 Gastro-esophageal reflux disease without esophagitis; F32.9 Major depressive disorder, single episode, unspecified; L73.2 Hidradenitis suppurativa; I10 Essential (primary) hypertension; G47.00 Insomnia, unspecified; G25.81 Restless legs syndrome; F17.210 Nicotine dependence, cigarettes, uncomplicated; E66.9 Obesity, unspecified; Z88.0 Allergy status to penicillin; Z79.899 Other long term (current) drug therapy; Z68.33 Body mass index [BMI] 33.0-33.9, adult
CPT/HCPCS: 36415; 58571; 80048; 84703; 85025; 85027; 86850; 86900; 86901; A9270; J0690; J1100; J1170; J1200; J1885; J1940; J2250; J2405; J3010; J7120; J2704

== ENCOUNTER 2022-11-05 19:53 | Emergency (ER) | payer BC, OTHER ==
[2022-11-05] MEDS: Octyl 2-Cyanoacrylate 1 g/1 mL 1 APPLIC PEN TOP ONE (20:09)
== END 2022-11-05 20:15 | disposition home or self-care (01) ==
LOC: MW.ED 19:53
DX: S61.213A Laceration without foreign body of left middle finger without damage to nail, initial encounter (principal); I10 Essential (primary) hypertension; K21.9 Gastro-esophageal reflux disease without esophagitis; E66.9 Obesity, unspecified; Z68.29 Body mass index [BMI] 29.0-29.9, adult; Z88.5 Allergy status to narcotic agent; Z88.0 Allergy status to penicillin; Z79.899 Other long term (current) drug therapy; W26.8XXA Contact with other sharp object(s), not elsewhere classified, initial encounter
CPT/HCPCS: 12001; 99282; A9270; 99283

== ENCOUNTER 2023-09-25 05:31 | Emergency (ER) | payer OTHER ==
[2023-09-25] MEDS: Lidocaine/Epineph/Tetracaine 3 ML Syringe TOP ONE (06:49)
[2023-09-25] MEDS: Octyl 2-Cyanoacrylate 1 g/1 mL 1 APPLIC PEN TOP ONE (07:57)
== END 2023-09-25 09:27 | disposition home or self-care (01) ==
LOC: MW.ED 05:31
DX: S02.31XA Fracture of orbital floor, right side, initial encounter for closed fracture (principal); S01.81XA Laceration without foreign body of other part of head, initial encounter; I10 Essential (primary) hypertension; K21.9 Gastro-esophageal reflux disease without esophagitis; E66.9 Obesity, unspecified; Z90.710 Acquired absence of both cervix and uterus; Z79.899 Other long term (current) drug therapy; Z88.5 Allergy status to narcotic agent; Z88.0 Allergy status to penicillin; Z68.27 Body mass index [BMI] 27.0-27.9, adult; W00.1XXA Fall from stairs and steps due to ice and snow, initial encounter
CPT/HCPCS: 12013; 70450; 70486; 99283; A9270